=== PATIENT | male | born 1985 | race Caucasian/White ===

== ENCOUNTER 2016-11-19 12:06 | Emergency (ER) | payer OTHER ==
[~2016-11-19] VITALS: Ht 182.9 cm; Wt 86.4 kg
[2016-11-19 12:13] VITALS: BP 158/106; PULSE 95; RESP 16; O2SAT 96
--- NOTE | 2016-11-19 12:35 | ED.REPORT ---
HPI- Male Date of Service Nov 19, 2016 ED Provider: Nury Morales MD 31 y/o male with a hx of HTN and meth use presents to the ED complaining of worsening, constant bilateral testicular pain for a week. He denies dysuria. He also complains of intermittent chest pain and shortness of breath while working , onset a month ago. Nursing Notes Stated Complaint: ABDOMINAL PAIN Chief Complaint: Male Abdominal Pain Nursing Notes Reviewed: Yes Allergies: Coded Allergies: No Known Allergies (Unverified , 11/19/16) Scheduled Apremilast (Otezla) 30 Mg Tablet 30 MG PO BID Diclofenac ER (Diclofenac ER) 75 Mg Tablet 75 MG PO DAILY Doxycycline Monohydrate (Avidoxy) 100 Mg Tablet 100 MG PO BID Indomethacin (Indomethacin) 50 Mg Capsule 50 MG PO TID Omeprazole (Omeprazole) 20 Mg Capsule.dr 20 MG PO DAILY General Time Seen by MD: 12:28 Chief Complaint Testicle painful right, Testicle painful left Hx Obtained From: Patient Arrived By: Walk-in Onset Occurred: 1 week ago Symptom Duration: Since onset Location: : Testicle left: Testicle right Quality: Painful Severity: Current: Moderate Severity: Maximum: Moderate Recent Healthcare: No recent doctor visit Similar Sx Previous: No Past Medical History Past Medical History HTN Past Surgical History none reported Smoking History Current Every Day Smoker Social History Drug Use: Meth Ambulatory Status Independent Review of Systems Male: Reports Testicular pain, Denies Dysuria Complete sys rev & neg: except as marked. Respiratory: Reports: Shortness of breath (while working; intermittent) Cardiovascular: Reports: Chest pain (intermittent) Physical Exam Initial Vital Signs Vital Signs (First) Date Time Temp Pulse Resp B/P Pulse Ox O2 Delivery O2 Flow Rate FiO2 11/19/16 12:13 36.6 95 16 158/106 96 Room Air Initial VS: Reviewed Head / Eyes: Atraumatic, Normocephalic, PERRL Neck: Supple, Non-tender, Full range of motion Respiratory: Breath sounds normal, Clear to auscultation, No respiratory distress Cardiovascular: Regular rate & rhythm, Heart sounds normal, Intact distal pulses Abdomen / GI: Soft, Non-tender Extremities: Vascular intact, Neuro intact, No swelling, No tenderness Skin: Warm, Dry, No cyanosis Neurologic: Alert, Oriented, Nonfocal Male Genitourinary: Atraumatic, Penis NL, No penile discharge Testes swollen and erythematous, right worse than left. General/Constitutional: Awake, Alert, Cooperative Interpretation & Diagnostics PROCEDURE: US TESTICULAR SONOGRAM WITH DOPPLER IMPRESSION: 1. Findings are consistent with bilateral epididymitis. 2. The testes are normal bilaterally. No hydrocele or varicocele. Dictated by: Ubaldo Rubi M.D. on 11/19/2016 at 13:27 Approved by: Ubaldo Rubi M.D. on 11/19/2016 at 13:32 Lab Results Interpretation Result Diagram: 11/19/16 1300 11/19/16 1300 Test 11/19/16 12:20 11/19/16 13:00 White Blood Count 9.2th/mm3 (3.8-10.1) Red Blood Count 4.98mil/mm3 (4.40-5.80) Hemoglobin 13.8g/dL (13.8-17.2) Hematocrit 41.1% (41.0-50.0) Mean Corpuscular Volume 82.5fL (81-100) Mean Corpuscular Hemoglobin 27.7pg (27.0-35.0) Mean Corpuscular Hemoglobin Concent 33.6% (32.0-37.0) Red Cell Distribution Width 14.7% (12.3-15.4) Platelet Count 373bil/L (150-400) Neutrophils (%) (Auto) 55.2% (40-74) Lymphocytes (%) (Auto) 29.8% (14-46) Monocytes (%) (Auto) 13.1% (4-12) Eosinophils (%) (Auto) 1.3% (0-5) Basophils (%) (Auto) 0.5% (0-3) Sodium Level 138mEq/L (134-144) Potassium Level 3.6mEq/L (3.5-5.2) Chloride Level 103mEq/L (97-108) Carbon Dioxide Level 22mmol/L (18-29) Blood Urea Nitrogen 6mg/dL (6-20) Creatinine 0.69mg/dL (0.76-1.27) Estimat Glomerular Filtration Rate 141mL/min (>59) Glucose Level 119mg/dL (60-99) Calcium Level 9.0mg/dL (8.5-10.1) Total Bilirubin 0.5mg/dL (0.0-1.2) Aspartate Amino Transf (AST/SGOT) 18U/L (0-50) Alanine Aminotransferase (ALT/SGPT) 14U/L (0-44) Alkaline Phosphatase 113U/L (25-150) Troponin T < 0.010ug/L (0.0-0.011) Total Protein 7.5g/dL (6.4-8.4) Albumin 3.6g/dL (3.4-5.0) ECG Interpretation ECG Interpretation: Normal sinus rhythm. Rate 84. Time: 13:32 Interpreted by: ED physician X-Ray Chest Interpretation Chest Xray Interpretation: IMPRESSION: No acute disease Dictated by: Leighton Monahan M.D. on 11/19/2016 at 13:01 Approved by: Leighton Monahan M.D. on 11/19/2016 at 13:02 View: Portable, 1 view Interpretation / Wet Read by: Interpret - Radiologist Re-Eval/Medical Decision Med Decision/Clinical Course Patient with epididymitis, discussed with him scrotal support, antibiotic treatment and follow up if any worsening symptoms or not improving. Patient also has had some intermittent chest pain reportedly over the past month while working, his EKG was normal, troponin was normal and so was his chest x-ray. He likely does have some undiagnosed hypertension, he will discuss this with his primary care doctor as well as his chest pain. He is low risk by her score and I do not have suspicion for ACS at this time. Re-Evaluation/Progress : Time of Eval: 13:54 Re-Evaluation/Progress Note: Rechecked pt. Discussed lab results, imaging results, diagnosis and plan to discharge. Pt understands and agrees with the plan. F/U instructions and RTER warning given. All questions addressed. Counseled Regarding: Diagnosis, Lab results, Need for follow-up, When/why to return to ED Discharge & Departure Impression: Primary Impression: Epididymitis Additional Impression: Chest pain Chest pain type: unspecified Qualified Code: R07.9 - Chest pain, unspecified Discharge Condition All VS Reviewed: Yes Additional Instructions: Thank you for entrusting us with your care today. Your lab and imaging results were reassuring. No dangerous cause of your symptoms is found today. Your blood pressure was elevated in the emergency department today. You need to have a follow-up appointment with your primary care doctor to have this rechecked and for possible treatment. Discussed with them that you have had chest pain. You have an infection near your testicles, but is on both sides. You were started on antibiotics for this. If your symptoms get worse with severe pain usually return to the emergency department. You should make an appointment with her primary care doctor in case her symptoms do not improve on antibiotics. You may need different antibiotics this case. You should wear tight supportive underwear for your pain. You can take Tylenol and ibuprofen for the pain as well. Referrals: [facility] Scribe Attestation Portions of this note were transcribed by Chuy Ash. I,, personally performed the history, physical exam and medical decision-making;I reviewed and confirmed the accuracy of the information in the transcribed note. Signed by Stanley Lopez. 11/19/16 copies to: [facility] Nury Morales MD Nov 19, 2016 12:35 Chuy Ash Nov 19, 2016 12:47
[2016-11-19] MEDS ORDERED: OMEP20CA11 PO (12:48)
[2016-11-19] MEDS ORDERED: DICL75TA6 PO (12:48)
[2016-11-19] MEDS ORDERED: APRE30TA2 PO (12:48)
[2016-11-19] MEDS ORDERED: INDO50CA PO (12:48)
--- NOTE | 2016-11-19 13:03 | DRSVH ---
PROCEDURE: X-RAY CHEST ONE VIEW, PORTABLE ([id number]) INDICATIONS: chest pain TECHNIQUE: One view of the chest was acquired. COMPARISON: None. FINDINGS: Surgical changes and devices: None. Lungs and pleura: No pleural effusions or pneumothorax. Lungs are clear. Mediastinum: Mediastinal contours appear normal. Heart size is normal. Bones and chest wall: No suspicious bony lesions. Overlying soft tissues appear unremarkable. IMPRESSION: No acute disease Dictated by: Leighton Monahan M.D. on 11/19/2016 at 13:01 Approved by: Leighton Monahan M.D. on 11/19/2016 at 13:02
[2016-11-19 13:05] LABS: BASOPHILS % (AUTO) 0.5 % (0-3); EOSINOPHILS % (AUTO) 1.3 % (0-5); MONOCYTES % (AUTO) 13.1 % (4-12); Mean Corpuscular Hemoglobin 27.7 pg (27.0-35.0); Mean Corpuscular Volume 82.5 fL (81-100); NEUTROPHILS % (AUTO) 55.2 % (40-74); Platelet Count 373 bil/L (150-400)
[2016-11-19 13:35] LABS: TROPONIN T < 0.010 ug/L (0.0-0.011)
--- NOTE | 2016-11-19 13:35 | DRSVH ---
PROCEDURE: US TESTICULAR SONOGRAM WITH DOPPLER INDICATIONS: testicular pain and swelling TECHNIQUE: Real-time scanning was performed of the scrotum and testicles, with image documentation. Color and p ulse Doppler interrogation was performed of both testicles. COMPARISON: None. FINDINGS: Right: Testicle is normal in size at 2.0 x 2.3 x 3.8 cm, and homogenous in echotexture. Epididymis is enlarged and hypervascular at the tail, measuring 16 x 19 x 20 mm.. No hydrocele or varicoceles. Overlying scrotal skin is normal in thickness. Left: Testicle is normal in size at 1.8 x 2.4 x 3.7 cm, and homogeneous in echotexture. Epididymis is enlarged and hypervascular at the tail, measuring 9 x 11 x 13 mm.. No hydrocele or varicoceles. Overlying scrotal skin is normal in thickness. Doppler: Color and pulse Doppler demonstrate normal and symmetric arterial flow in both testicles. IMPRESSION: 1. Findings are consistent with bilateral epididymitis. 2. The testes are normal bilaterally. No hydrocele or varicocele. Dictated by: Ubaldo Rubi M.D. on 11/19/2016 at 13:27 Approved by: Ubaldo Rubi M.D. on 11/19/2016 at 13:32
[2016-11-19] MEDS ORDERED: cefTRIAXone Inj 250 MG, Lidocaine PF 1% Inj 0.9 ML in Syringe 1 EACH IM ONE (13:50)
[2016-11-19] MEDS ORDERED: DOXY100T56 PO (13:58)
[2016-11-19 14:52] VITALS: BP 155/100; PULSE 98; RESP 16; O2SAT 99
== END 2016-11-19 14:53 | disposition home or self-care (01) ==
LOC: SED 12:06
DX: N45.1 Epididymitis (principal); R07.9 Chest pain, unspecified; I10 Essential (primary) hypertension; F17.200 Nicotine dependence, unspecified, uncomplicated
CPT/HCPCS: 36415; 71010; 76870; 80053; 84484; 85025; 87491; 87591; 93005; 93975; 96372; 99285; J0696